=== PATIENT | male | born 1975 | race Caucasian/White ===

== ENCOUNTER 2018-12-19 02:56 | Emergency (ER) | payer OTHER ==
[~2018-12-19] VITALS: Ht 167.6 cm; Wt 100.7 kg
[~2018-12-19 02:56] MED LIST: ALEVE220 M1 PO; CEFADROXIL500 MG PO; PERCOCET 5/3251 TAB PO
[2018-12-19] MEDS ORDERED: SYNTHROID125 MCG (03:16)
[2018-12-19] MEDS ORDERED: MEDROL8 MG PO (08:15)
[2018-12-19] MEDS ORDERED: ALBUTEROL2.5 MG/3 M IH (08:15)
[2018-12-19] MEDS ORDERED: ZYNCOF 20-400120 ML PO (08:15)
== END 2018-12-19 08:28 | disposition home or self-care (01) ==
LOC: ER 02:56
DX: J40 Bronchitis, not specified as acute or chronic (principal)

== ENCOUNTER 2021-07-19 16:50 | Emergency (ER) | payer OTHER ==
[~2021-07-19] VITALS: Ht 167.6 cm; Wt 104.3 kg
[~2021-07-19 16:50] MED LIST changes: +ALBUTEROL2.5 MG/3 M IH; +MEDROL8 MG PO; +SYNTHROID125 MCG; +ZYNCOF 20-400120 ML PO
== END 2021-07-19 21:52 | disposition home or self-care (01) ==
LOC: ER 16:50
DX: J06.9 Acute upper respiratory infection, unspecified (principal); Z03.818 Encounter for observation for suspected exposure to other biological agents ruled out